=== PATIENT | female | born 1985 | race Caucasian/White ===

== ENCOUNTER 2017-01-19 17:47 | Emergency (ER) | payer MEDICAID ==
[2017-01-19 18:26] LABS: BASOPHILS 0.1 % (0-2); EOSINOPHILS 0 % (0-7); HEMATOCRIT 41.1 % (36.0-48.0); HEMOGLOBIN 13.4 g/dL (12-16); IMMATURE GRANULOCYTES 0.4 % (0-5); LYMPHOCYTES 11.6 % (15-50); MCHC 32.6 g/dL (31.0-37.0); MCV 92.2 fL (80.0-100.0); MEAN PLATELET VOLUME 9.1 fL (7.4-10.4); MONOCYTES 3.5 % (2-11); NEUTROPHILS 84.4 % (40-80); RBC 4.46 10x6/uL (4.00-5.40); RDW 15.4 % (11.5-14.5); WBC 13.9 10x3/uL (4.8-10.8)
[2017-01-19 18:28] LABS: APPEARANCE HAZY (CLEAR); BILIRUBIN NEGATIVE (NEGATIVE); COLOR YELLOW (YELLOW); GLUCOSE NEGATIVE (NEGATIVE); KETONE NEGATIVE (NEGATIVE); NITRITE NEGATIVE (NEGATIVE); PLATELET COUNT 408 10x3/uL (130-400); PROTEIN NEGATIVE (NEGATIVE); SPECIFIC GRAVITY 1.015 (1.005-1.020); UROBILINOGEN NORMAL (NORMAL)
[2017-01-19 18:35] LABS: BACTERIA MODERATE /hpf (NONE SEEN); EPITHELIAL CELLS 0-5 /hpf (0-5); HYALINE CAST RARE /lpf (NONE SEEN); MUCUS <1+ /lpf (NONE SEEN); RED CELLS - URINE 0-5 /hpf (0-5); TALC POWDER CRYSTALS RARE /hpf (NONE SEEN); WHITE CELLS - URINE OCC /hpf (0-5)
[2017-01-19 18:39] LABS: HCG SERUM NEGATIVE (NEGATIVE)
== END 2017-01-19 21:02 | disposition home or self-care (01) ==
LOC: D.ER 17:47
PROVIDERS: Family Medicine
DX: N39.0 Urinary tract infection, site not specified (principal); R10.9 Unspecified abdominal pain

== ENCOUNTER 2017-03-23 20:59 | Emergency (ER) | payer MEDICAID ==
[2017-03-23 21:43] LABS: BASOPHILS 0.1 % (0-2); EOSINOPHILS 2.2 % (0-7); HEMATOCRIT 42.8 % (36.0-48.0); HEMOGLOBIN 14.1 g/dL (12-16); IMMATURE GRANULOCYTES 0.3 % (0-5); LYMPHOCYTES 22.7 % (15-50); MCH 29.2 pg (26.0-34.0); MCHC 32.9 g/dL (31.0-37.0); MCV 88.6 fL (80.0-100.0); MONOCYTES 5.7 % (2-11); PLATELET COUNT 398 10x3/uL (130-400); RBC 4.83 10x6/uL (4.00-5.40); RDW 14.1 % (11.5-14.5)
[2017-03-23 21:48] LABS: HCG SERUM NEGATIVE (NEGATIVE)
[2017-03-23 21:53] LABS: APPEARANCE CLEAR (CLEAR); BILIRUBIN NEGATIVE (NEGATIVE); COLOR YELLOW (YELLOW); GLUCOSE NEGATIVE (NEGATIVE); KETONE NEGATIVE (NEGATIVE); NITRITE NEGATIVE (NEGATIVE); PROTEIN NEGATIVE (NEGATIVE); SPECIFIC GRAVITY 1.015 (1.005-1.020); UROBILINOGEN NORMAL (NORMAL)
[2017-03-23 21:55] LABS: BACTERIA FEW /hpf (NONE SEEN); RED CELLS - URINE 0-5 /hpf (0-5)
[2017-03-23 22:00] LABS: ALBUMIN 3.2 g/dL (3.4-5.0); ALKALINE PHOSPHATASE 72 U/L (46-116); ALT (SGPT) 16 U/L (10-68); CALC OSMOLALITY 273 mosm/kg (275-300); CALCIUM 9.3 mg/dL (8.5-10.1); CARBON DIOXIDE 26.1 mmol/L (21.0-32.0); CHLORIDE - SERUM 101 mmol/L (98-107); CREATININE - SERUM 0.9 mg/dL (0.6-1.3); GLUCOSE 110 mg/dL (74-106); POTASSIUM - SERUM 3.8 mmol/L (3.5-5.1); PROTEIN - SERUM 7.2 g/dL (6.4-8.2); SODIUM 137 mmol/L (136-145); UREA NITROGEN 9 mg/dL (7-18); eGFR NON AFRICAN AMERICAN 78 mL/min (90-120)
[2017-03-23 22:25] LABS: UDS - AMPHET NEGATIVE QUAL (NEGATIVE); UDS - BARB NEGATIVE QUAL (NEGATIVE); UDS - BENZO NEGATIVE QUAL (NEGATIVE); UDS - COCAINE NEGATIVE QUAL (NEGATIVE); UDS - OPIATE NEGATIVE QUAL (NEGATIVE); UDS - PCP NEGATIVE QUAL (NEGATIVE); UDS - THC POSITIVE QUAL (NEGATIVE)
== END 2017-03-24 00:24 | disposition home or self-care (01) ==
LOC: D.ER 20:59
PROVIDERS: Family Medicine; Nurse Practitioner Family
DX: K50.90 Crohn's disease, unspecified, without complications (principal); R10.31 Right lower quadrant pain

== ENCOUNTER 2017-04-18 23:16 | Emergency (ER) | payer MEDICAID ==
[2017-04-18 23:29] LABS: APPEARANCE CLEAR (CLEAR); BILIRUBIN NEGATIVE (NEGATIVE); COLOR YELLOW (YELLOW); GLUCOSE NEGATIVE (NEGATIVE); KETONE NEGATIVE (NEGATIVE); NITRITE NEGATIVE (NEGATIVE); PROTEIN NEGATIVE (NEGATIVE); UROBILINOGEN NORMAL (NORMAL)
[2017-04-18 23:30] LABS: HCG URINE NEGATIVE (NEGATIVE)
[2017-04-19 00:02] LABS: ALBUMIN 2.9 g/dL (3.4-5.0); ALKALINE PHOSPHATASE 69 U/L (46-116); ALT (SGPT) 15 U/L (10-68); AMYLASE - SERUM 66 U/L (25-115); BILIRUBIN - TOTAL 0.19 mg/dL (0.2-1.3); CALC OSMOLALITY 272 mosm/kg (275-300); CALCIUM 8.6 mg/dL (8.5-10.1); CARBON DIOXIDE 27.4 mmol/L (21.0-32.0); CHLORIDE - SERUM 104 mmol/L (98-107); CREATININE - SERUM 0.9 mg/dL (0.6-1.3); GLUCOSE 96 mg/dL (74-106); LIPASE 286 U/L (73-393); POTASSIUM - SERUM 3.3 mmol/L (3.5-5.1); PROTEIN - SERUM 6.5 g/dL (6.4-8.2); SODIUM 138 mmol/L (136-145); UREA NITROGEN 5 mg/dL (7-18); eGFR NON AFRICAN AMERICAN 78 mL/min (90-120)
[2017-04-19 00:11] LABS: BASOPHILS 0.2 % (0-2); EOSINOPHILS 1.7 % (0-7); HEMOGLOBIN 12.5 g/dL (12-16); IMMATURE GRANULOCYTES 0.3 % (0-5); MCH 28.5 pg (26.0-34.0); MCHC 32.1 g/dL (31.0-37.0); MEAN PLATELET VOLUME 9.1 fL (7.4-10.4); NEUTROPHILS 64.8 % (40-80); PLATELET COUNT 380 10x3/uL (130-400); RBC 4.38 10x6/uL (4.00-5.40); RDW 14.3 % (11.5-14.5); WBC 13.1 10x3/uL (4.8-10.8)
== END 2017-04-19 02:05 | disposition home or self-care (01) ==
LOC: D.ER 23:16
PROVIDERS: Family Medicine
DX: A04.9 Bacterial intestinal infection, unspecified (principal); K50.90 Crohn's disease, unspecified, without complications; F17.200 Nicotine dependence, unspecified, uncomplicated

== ENCOUNTER 2017-04-21 18:24 | Inpatient (IN) | payer MEDICAID ==
[~2017-04-21] VITALS: Ht 165.1 cm; Wt 77.1 kg
[2017-04-21 19:22] LABS: BASOPHILS 0.1 % (0-2); EOSINOPHILS 1.2 % (0-7); HEMATOCRIT 39.7 % (36.0-48.0); HEMOGLOBIN 12.8 g/dL (12-16); IMMATURE GRANULOCYTES 0.2 % (0-5); LYMPHOCYTES 22.9 % (15-50); MCH 28.4 pg (26.0-34.0); MCHC 32.2 g/dL (31.0-37.0); MCV 88.2 fL (80.0-100.0); MONOCYTES 5.5 % (2-11); NEUTROPHILS 70.1 % (40-80); PLATELET COUNT 395 10x3/uL (130-400); RDW 14.1 % (11.5-14.5); WBC 13.7 10x3/uL (4.8-10.8)
[2017-04-21 19:33] LABS: APPEARANCE HAZY (CLEAR); BILIRUBIN NEGATIVE (NEGATIVE); COLOR YELLOW (YELLOW); GLUCOSE NEGATIVE (NEGATIVE); KETONE SMALL mg/dL (NEGATIVE); NITRITE NEGATIVE (NEGATIVE); PROTEIN NEGATIVE (NEGATIVE); SPECIFIC GRAVITY 1.015 (1.005-1.020); UROBILINOGEN NORMAL (NORMAL)
[2017-04-21 19:35] LABS: BACTERIA MODERATE /hpf (NONE SEEN); RED CELLS - URINE OCC /hpf (0-5)
[2017-04-21 19:36] LABS: HCG URINE NEGATIVE (NEGATIVE)
[2017-04-21 19:38] LABS: ALBUMIN 2.9 g/dL (3.4-5.0); ALKALINE PHOSPHATASE 72 U/L (46-116); ALT (SGPT) 15 U/L (10-68); AMYLASE - SERUM 56 U/L (25-115); CALC OSMOLALITY 271 mosm/kg (275-300); CALCIUM 8.7 mg/dL (8.5-10.1); CARBON DIOXIDE 21.2 mmol/L (21.0-32.0); CHLORIDE - SERUM 104 mmol/L (98-107); CREATININE - SERUM 0.7 mg/dL (0.6-1.3); GLUCOSE 96 mg/dL (74-106); LIPASE 184 U/L (73-393); POTASSIUM - SERUM 3.3 mmol/L (3.5-5.1); PROTEIN - SERUM 7.1 g/dL (6.4-8.2); SODIUM 137 mmol/L (136-145); UREA NITROGEN 6 mg/dL (7-18); eGFR NON AFRICAN AMERICAN > 90 mL/min (90-120)
== END 2017-04-22 14:46 | disposition home or self-care (01) | DRG 389 ==
LOC: D.ER 18:24 → D.EDHOLD 04-22 01:24
PROVIDERS: Emergency Medicine; Family Medicine
DX: K56.7 Ileus, unspecified (principal); K50.90 Crohn's disease, unspecified, without complications; K52.9 Noninfective gastroenteritis and colitis, unspecified

== ENCOUNTER 2017-10-09 16:36 | Emergency (ER) | payer MEDICAID ==
[~2017-10-09] VITALS: Ht 165.1 cm; Wt 65.9 kg
[2017-10-09 17:17] VITALS: Ht 165.1 cm; Wt 65.9 kg
[2017-10-09 17:52] LABS: BASOPHILS 0.5 % (0-2); EOSINOPHILS 1.8 % (0-7); HEMATOCRIT 39.4 % (36.0-48.0); HEMOGLOBIN 13.3 g/dL (12-16); IMMATURE GRANULOCYTES 0.1 % (0-5); LYMPHOCYTES 36.2 % (15-50); MCH 29.2 pg (26.0-34.0); MCHC 33.8 g/dL (31.0-37.0); MCV 86.4 fL (80.0-100.0); MEAN PLATELET VOLUME 9.4 fL (7.4-10.4); MONOCYTES 6.4 % (2-11); PLATELET COUNT 371 10x3/uL (130-400); RBC 4.56 10x6/uL (4.00-5.40); RDW 14.9 % (11.5-14.5); WBC 8.3 10x3/uL (4.8-10.8)
[2017-10-09 17:53] LABS: APPEARANCE HAZY (CLEAR); BILIRUBIN NEGATIVE (NEGATIVE); COLOR YELLOW (YELLOW); GLUCOSE NEGATIVE (NEGATIVE); KETONE NEGATIVE (NEGATIVE); NITRITE NEGATIVE (NEGATIVE); PROTEIN NEGATIVE (NEGATIVE); UROBILINOGEN NORMAL (NORMAL)
[2017-10-09 17:56] LABS: HCG URINE NEGATIVE (NEGATIVE)
[2017-10-09 18:16] LABS: ALBUMIN 3.5 g/dL (3.4-5.0); ALKALINE PHOSPHATASE 80 U/L (46-116); ALT (SGPT) 24 U/L (10-68); BILIRUBIN - TOTAL 0.28 mg/dL (0.2-1.3); CALC OSMOLALITY 269 mosm/kg (275-300); CALCIUM 9.1 mg/dL (8.5-10.1); CARBON DIOXIDE 26.7 mmol/L (21.0-32.0); CHLORIDE - SERUM 101 mmol/L (98-107); CREATININE - SERUM 0.6 mg/dL (0.6-1.3); GLUCOSE 93 mg/dL (74-106); POTASSIUM - SERUM 4.1 mmol/L (3.5-5.1); PROTEIN - SERUM 7.8 g/dL (6.4-8.2); SODIUM 136 mmol/L (136-145); UREA NITROGEN 7 mg/dL (7-18); eGFR NON AFRICAN AMERICAN > 90 mL/min (90-120)
[2017-10-09 18:21] LABS: AMYLASE - SERUM 108 U/L (25-115); LIPASE 747 U/L (73-393); TROPONIN-I < 0.017 ng/mL (0.000-0.060)
[2017-10-09] MEDS ORDERED: NORCO 7.5/325 T1 TA1 PO (22:00)
[2017-10-09] MEDS ORDERED: ZOFRAN ODT4 MG/UDTAB PO (22:00)
[2017-10-09 22:12] VITALS: BP 97/60
== END 2017-10-09 22:12 | disposition home or self-care (01) ==
LOC: D.ER 16:36
PROVIDERS: Family Medicine
DX: K85.90 Acute pancreatitis without necrosis or infection, unspecified (principal); R10.9 Unspecified abdominal pain; R11.2 Nausea with vomiting, unspecified; M54.5 Low back pain; K50.90 Crohn's disease, unspecified, without complications; F17.200 Nicotine dependence, unspecified, uncomplicated

== ENCOUNTER 2018-02-24 19:09 | Emergency (ER) | payer MEDICAID ==
[~2018-02-24] VITALS: Ht 165.1 cm; Wt 72.6 kg
[~2018-02-24 19:09] MED LIST: NORCO 7.5/325 T1 TA1 PO; ZOFRAN ODT4 MG/UDTAB PO
[2018-02-24 19:23] VITALS: Ht 165.1 cm; Wt 72.6 kg
[2018-02-24 20:07] LABS: BASOPHILS 0.1 % (0-2); EOSINOPHILS 0.1 % (0-7); HEMATOCRIT 38.2 % (36.0-48.0); HEMOGLOBIN 12.8 g/dL (12-16); IMMATURE GRANULOCYTES 0.3 % (0-5); LYMPHOCYTES 13.4 % (15-50); MCH 28.3 pg (26.0-34.0); MCHC 33.5 g/dL (31.0-37.0); MCV 84.3 fL (80.0-100.0); MEAN PLATELET VOLUME 8.6 fL (7.4-10.4); MONOCYTES 4.9 % (2-11); NEUTROPHILS 81.2 % (40-80); PLATELET COUNT 366 10x3/uL (130-400); RBC 4.53 10x6/uL (4.00-5.40); RDW 16.1 % (11.5-14.5); WBC 15.4 10x3/uL (4.8-10.8)
[2018-02-24 20:14] LABS: APPEARANCE CLEAR (CLEAR); BILIRUBIN NEGATIVE (NEGATIVE); COLOR YELLOW (YELLOW); GLUCOSE NEGATIVE (NEGATIVE); KETONE NEGATIVE (NEGATIVE); NITRITE NEGATIVE (NEGATIVE); PROTEIN NEGATIVE (NEGATIVE); SPECIFIC GRAVITY 1.025 (1.005-1.020); UROBILINOGEN NORMAL (NORMAL)
[2018-02-24 20:15] LABS: HCG URINE POSITIVE (NEGATIVE)
[2018-02-24 20:27] LABS: ALBUMIN 3.1 g/dL (3.4-5.0); ALKALINE PHOSPHATASE 68 U/L (46-116); ALT (SGPT) 23 U/L (10-68); AMYLASE - SERUM 51 U/L (25-115); BILIRUBIN - TOTAL 0.19 mg/dL (0.2-1.3); CALC OSMOLALITY 270 mosm/kg (275-300); CALCIUM 8.8 mg/dL (8.5-10.1); CARBON DIOXIDE 22.7 mmol/L (21.0-32.0); CHLORIDE - SERUM 102 mmol/L (98-107); CREATININE - SERUM 0.8 mg/dL (0.6-1.3); GLUCOSE 93 mg/dL (74-106); LIPASE 130 U/L (73-393); POTASSIUM - SERUM 4.1 mmol/L (3.5-5.1); PROTEIN - SERUM 7.2 g/dL (6.4-8.2); SODIUM 135 mmol/L (136-145); UREA NITROGEN 14 mg/dL (7-18); eGFR NON AFRICAN AMERICAN 89 mL/min (90-120)
[2018-02-25 01:37] VITALS: BP 116/86
[2018-02-25] MEDS ORDERED: PHENERGAN25 M1 PO (01:50)
== END 2018-02-25 01:56 | disposition home or self-care (01) ==
LOC: D.ER 19:09
PROVIDERS: Family Medicine
DX: O26.891 Other specified pregnancy related conditions, first trimester (principal); Z3A.01 Less than 8 weeks gestation of pregnancy; K50.90 Crohn's disease, unspecified, without complications; F17.200 Nicotine dependence, unspecified, uncomplicated

== ENCOUNTER 2018-11-26 22:49 | Emergency (ER) | payer MEDICAID ==
[~2018-11-26] VITALS: Ht 165.1 cm; Wt 77.3 kg
[~2018-11-26 22:49] MED LIST changes: +PHENERGAN25 M1 PO
[2018-11-26 22:53] VITALS: Ht 165.1 cm; Wt 77.3 kg
[2018-11-26] MEDS ORDERED: [UNRECOGNIZED DRUG - OTHER] (22:54)
[2018-11-26] MEDS ORDERED: PROCARDIA10 MG (22:54)
[2018-11-26] MEDS ORDERED: ZOLOFT50 MG PO (22:55)
[2018-11-26 23:09] LABS: BASOPHILS 0.2 % (0-2); EOSINOPHILS 0.1 % (0-7); HEMOGLOBIN 11.6 g/dL (12-16); IMMATURE GRANULOCYTES 0.2 % (0-5); LYMPHOCYTES 24.3 % (15-50); MCH 26.3 pg (26.0-34.0); MCHC 31.4 g/dL (31.0-37.0); MCV 83.9 fL (80.0-100.0); MEAN PLATELET VOLUME 8.8 fL (7.4-10.4); MONOCYTES 4.5 % (2-11); NEUTROPHILS 70.7 % (40-80); RBC 4.41 10x6/uL (4.00-5.40); RDW 16.7 % (11.5-14.5)
[2018-11-26 23:11] LABS: PLATELET COUNT 497 10x3/uL (130-400)
[2018-11-26 23:21] LABS: HCG URINE NEGATIVE (NEGATIVE)
[2018-11-26 23:22] LABS: APPEARANCE CLEAR (CLEAR); BILIRUBIN NEGATIVE (NEGATIVE); COLOR YELLOW (YELLOW); GLUCOSE NEGATIVE (NEGATIVE); KETONE NEGATIVE (NEGATIVE); NITRITE NEGATIVE (NEGATIVE); PROTEIN 1+ mg/dL (NEGATIVE); UROBILINOGEN NORMAL (NORMAL)
[2018-11-26 23:23] LABS: BACTERIA MODERATE /hpf (NEGATIVE); EPITHELIAL CELLS 0-5 /hpf (0-5); MUCUS <1+ /lpf (NONE SEEN); WHITE CELLS - URINE 0-5 /hpf (NEGATIVE)
[2018-11-26 23:32] LABS: ALBUMIN 3.5 g/dL (3.4-5.0); ALKALINE PHOSPHATASE 120 U/L (46-116); ALT (SGPT) 22 U/L (10-68); BILIRUBIN - TOTAL 0.12 mg/dL (0.2-1.3); CALC OSMOLALITY 276 mosm/kg (275-300); CALCIUM 8.4 mg/dL (8.5-10.1); CARBON DIOXIDE 22.6 mmol/L (21.0-32.0); CHLORIDE - SERUM 104 mmol/L (98-107); CREATININE - SERUM 0.7 mg/dL (0.6-1.3); GLUCOSE 113 mg/dL (74-106); POTASSIUM - SERUM 3.9 mmol/L (3.5-5.1); PROTEIN - SERUM 7.1 g/dL (6.4-8.2); SODIUM 139 mmol/L (136-145); UREA NITROGEN 8 mg/dL (7-18); eGFR NON AFRICAN AMERICAN > 90 mL/min (90-120)
[2018-11-26 23:35] LABS: AMYLASE - SERUM 50 U/L (25-115); LIPASE 234 U/L (73-393)
[2018-11-26 23:39] LABS: TROPONIN-I < 0.017 ng/mL (0.000-0.060)
[2018-11-27] MEDS ORDERED: ZOFRAN ODT4 MG/UDTAB PO (00:08)
[2018-11-27 01:44] VITALS: BP 119/87
== END 2018-11-27 01:45 | disposition home or self-care (01) ==
LOC: D.ER 22:49
PROVIDERS: Emergency Medicine
DX: R11.2 Nausea with vomiting, unspecified (principal); R10.9 Unspecified abdominal pain; R19.7 Diarrhea, unspecified

== ENCOUNTER 2019-01-18 23:42 | Emergency (ER) | payer MEDICAID ==
[~2019-01-18] VITALS: Ht 165.1 cm; Wt 83.9 kg
[~2019-01-18 23:42] MED LIST changes: +PROCARDIA10 MG; +ZOLOFT50 MG PO; +[UNRECOGNIZED DRUG - OTHER]
[2019-01-18 23:45] VITALS: Ht 165.1 cm; Wt 83.9 kg
[2019-01-19 00:12] LABS: BASOPHILS 0.5 % (0-2); EOSINOPHILS 7.5 % (0-7); HEMATOCRIT 32.5 % (36.0-48.0); HEMOGLOBIN 10.2 g/dL (12-16); IMMATURE GRANULOCYTES 0.2 % (0-5); LYMPHOCYTES 35.7 % (15-50); MCH 25.6 pg (26.0-34.0); MCHC 31.4 g/dL (31.0-37.0); MCV 81.5 fL (80.0-100.0); MEAN PLATELET VOLUME 8.5 fL (7.4-10.4); MONOCYTES 10.9 % (2-11); NEUTROPHILS 45.2 % (40-80); PLATELET COUNT 497 10x3/uL (130-400); RBC 3.99 10x6/uL (4.00-5.40); RDW 14.8 % (11.5-14.5); WBC 8.4 10x3/uL (4.8-10.8)
[2019-01-19 00:22] LABS: CALC OSMOLALITY 277 mosm/kg (275-300); CALCIUM 8.3 mg/dL (8.5-10.1); CARBON DIOXIDE 24.2 mmol/L (21.0-32.0); CHLORIDE - SERUM 106 mmol/L (98-107); CREATININE - SERUM 0.7 mg/dL (0.6-1.3); GLUCOSE 76 mg/dL (74-106); POTASSIUM - SERUM 4.1 mmol/L (3.5-5.1); SODIUM 139 mmol/L (136-145); UREA NITROGEN 14 mg/dL (7-18); eGFR NON AFRICAN AMERICAN > 90 mL/min (90-120)
[2019-01-19 00:28] LABS: ALBUMIN 3.1 g/dL (3.4-5.0); ALKALINE PHOSPHATASE 99 U/L (46-116); ALT (SGPT) 15 U/L (10-68); AMYLASE - SERUM 50 U/L (25-115); BILIRUBIN - TOTAL 0.12 mg/dL (0.2-1.3); LIPASE 167 U/L (73-393); TROPONIN-I < 0.017 ng/mL (0.000-0.060)
[2019-01-19 00:32] LABS: APPEARANCE CLEAR (CLEAR); BILIRUBIN NEGATIVE (NEGATIVE); COLOR YELLOW (YELLOW); GLUCOSE NEGATIVE (NEGATIVE); HCG URINE NEGATIVE (NEGATIVE); KETONE NEGATIVE (NEGATIVE); NITRITE NEGATIVE (NEGATIVE); PROTEIN NEGATIVE (NEGATIVE); UROBILINOGEN NORMAL (NORMAL)
[2019-01-19 00:33] LABS: BACTERIA NONE SEEN /hpf (NEGATIVE); EPITHELIAL CELLS NSEEN /hpf (0-5); RED CELLS - URINE NONE SEEN /hpf (0-5); WHITE CELLS - URINE 0-5 /hpf (NEGATIVE)
[2019-01-19] MEDS ORDERED: ZOFRAN8 MG PO (01:19)
[2019-01-19] MEDS ORDERED: ULTRAM50 MG PO (01:19)
[2019-01-19 02:36] VITALS: BP 132/73
== END 2019-01-19 02:37 | disposition home or self-care (01) ==
LOC: D.ER 23:42
PROVIDERS: Emergency Medicine
DX: R10.9 Unspecified abdominal pain (principal); D64.9 Anemia, unspecified; Z87.19 Personal history of other diseases of the digestive system; Z87.442 Personal history of urinary calculi

== ENCOUNTER 2019-03-10 16:05 | Emergency (ER) | payer OTHER ==
[~2019-03-10] VITALS: Ht 165.1 cm; Wt 86.4 kg
[~2019-03-10 16:05] MED LIST changes: +ULTRAM50 MG PO; +ZOFRAN8 MG PO
[2019-03-10 16:25] VITALS: Ht 165.1 cm; Wt 86.4 kg
[2019-03-10] MEDS ORDERED: PENICILLIN V P500 MG PO (17:07)
[2019-03-10 17:38] VITALS: BP 110/78
== END 2019-03-10 18:12 | disposition home or self-care (01) ==
LOC: D.ER 16:05
DX: K08.89 Other specified disorders of teeth and supporting structures (principal); Z72.0 Tobacco use